=== PATIENT | female | born 1970 | race African-American/Black ===

== ENCOUNTER 2023-09-14 19:29 | Emergency (ER) | payer OTHER, SELFPAY ==
[2023-09-14 19:34] VITALS: BP 202/120; PULSE 72; TEMP 36.7; O2SAT 100; BMI 30.7
--- NOTE | 2023-09-14 19:48 | ED_ITS ---
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 Injury occurred shortly prior to arrival at work when she accidentally got her finger caught in the machine, describes as crushing, smashing type injury. Complains of pain, bruising, tenderness to the distal aspect of her finger. Denies any other injury, motor or sensory changes, paresthesias. Patient is right-handed. Quality:?Crushing type injury Severity:?Mild Timing:?Injury occurred shortly prior to arrival, constant Context: Injury occurred while at work Modifying factors:?Pain worse with palpation, movement Associated symptoms: As above Related Data Previous Rx's ?Medication ?Instructions ?Recorded lisinopril 20 mg tablet 20 mg PO DAILY #20 tabs 09/14/23 Allergies Allergy/AdvReac Type Severity Reaction Status Date / Time No Known Drug Allergies Allergy Verified 09/14/23 19:39 Opioid HPI Opioid Management Most Recent Pain and Opioid Data: No Data to Display Review of Systems ROS Narrative CONST: Denies activity change, weakness MS: +arthralgias, swelling.? Denies myalgias SKIN: + bruising. Denies wound NEURO: Denies numbness, paresthesias, weakness Exam Narrative Exam Narrative: Vital signs noted Nurses notes reviewed CONST: Nontoxic, well appearing, well nourished, in no distress.? HENT: normocephalic, atraumatic. CV: 2+ palpable right radial pulse MS: Right middle finger: +tenderness to the distal phalanx. There is some associated swelling, bruising is noted. Patient has acrylic nail present. Nail is thick. Cannot assess for subungual hematoma around it.? No tenderness to the remainder of the finger, rest of the hand.? No crepitus, deformity, instability, warmth.? ROM full flexion and extension.? Strength 5/5 NEURO: Sensory intact throughout and distal to the injury SKIN: intact, warm, dry.? No abrasion, laceration PSYCHIATRIC: normal mood, affect Constitutional Vital Signs, click to edit/add: Last Vital Signs Temp 98.1 F 09/14/23 19:34 Pulse 67 09/14/23 21:31 Resp 16 09/14/23 21:31 BP 190/108 H 09/14/23 21:31 Pulse Ox 99 09/14/23 21:31 O2 Del Method Room Air 09/14/23 21:31 Course Reevaluation(s) Reevaluation #1: Discussed with patient results, plan, and disposition. She is agreeable with plan. Patient gave permission to discuss results with Tameka who is underwriting sales representative of patient's employer. Time: 21:15 Vital Signs Vital signs: Vital Signs Temperature 98.1 F 09/14/23 19:34 Pulse Rate 72 09/14/23 19:34 Respiratory Rate 18 09/14/23 19:34 Blood Pressure 202/120 H 09/14/23 19:34 Pulse Oximetry 100 09/14/23 19:34 Oxygen Delivery Method Room Air 09/14/23 19:34 Temperature 98.1 F 09/14/23 19:34 Pulse Rate 67 09/14/23 21:31 Respiratory Rate 16 09/14/23 21:31 Blood Pressure 190/108 H 09/14/23 21:31 Pulse Oximetry 99 09/14/23 21:31 Oxygen Delivery Method Room Air 09/14/23 21:31 MDM - Extremity Injury (Upper) MDM Narrative Medical decision making narrative: This is a pleasant 53-year-old female who presents to the emergency department complaint of injury to her right middle finger while at work shortly prior to arrival. States accidental crush type injury. Complains of pain, tenderness, swelling, bruising, throbbing to the finger. Denies any motor or sensory changes, paresthesias. On arrival, afebrile, hypertensive, otherwise vital signs stable. Exam, nontoxic, well-appearing patient in no distress. She has swelling, bruising, tenderness to the distal right middle finger. We were able to remove a portion of the fingernail. No evidence of subungual hematoma.MSPs intact. X- ray imaging, per radiologist reveals distal tuft fracture. Favor crushing injury of her finger causing distal tuft fracture Dislocation less likely based on imaging Subungual hematoma less likely based on exam Patient will be placed in finger splint. She declined anything stronger than Motrin or Tylenol for pain. Incidentally, patient's arrival revealed blood pressure elevated. Patient has chronic history of hypertension, but stopped taking her blood pressure medicines for years ago in association with smoking cessation. Patient is agreeable with going back on her blood pressure medicines. Will write a prescription for this and she was given dose in the emergency department. She denies any headache, lightheadedness, chest pain, dizziness Disposition ? The patient was discharged. Plan: Patient will be discharged to home. Condition at time of disposition: stable ? Advised to follow up with primary provider. Advised to return for any worsening and/or development of new, concerning signs or symptoms PLEASE NOTE: Portions of the medical record may have been produced using electronic repatcher and may contain errors with respect to translation of words which may not have been identified prior to finalization of the chart. Imaging Data finger xr: Attestation: I have reviewed the pertinent imaging results. Radiologist's impression: ITS Impressions Finger X-Ray 09/14/23 19:49 IMPRESSION: Acute minimally displaced fracture of the distal tuft of the distal phalanx of the third digit of the right hand is seen. Associated soft tissue swelling is seen. Electronically authenticated by: ERIK RUIZ Date: 09/14/2023 20:36 Discharge Plan Discharge Stand Alone Forms: Portal Instructions Chief Complaint: Extremity Injury, Upper Clinical Impression: Finger pain, right, Fracture of middle phalanx of finger of right hand, Elevated blood pressure reading Patient Disposition: Home, Self-Care Time of Disposition Decision: 21:14 Condition: Good Mode of Transportation: Private Vehicle Prescriptions / Home Meds: New lisinopril 20 mg tablet 20 mg PO DAILY Qty: 20 0RF Print Language: Sudanese Instructions: Finger Fracture (ED), Hypertension (ED) Referrals: LUNA MATUTE [Primary Care Provider] - 1 week Discharge Date/Time: 09/14/23 21:30
--- NOTE | 2023-09-14 19:49 | XR_ITS ---
The [address] [address] Patient Name: CHELSEY FISCHER MRN: [id number] date: 1970 Sex: F Assigned Patient Location: ER Current Patient Location: ED.MAIN Accession/Order Number: [id number] Exam Date: 09/14/2023 19:55 Report Date: 09/14/2023 20:36 At the request of: RICK RENE Procedure: XR finger RT min 2V EXAM: XR finger RT min 2V HISTORY: pain, injury COMPARISON: None. TECHNIQUE: 3 views of the third digit of the right hand FINDINGS: Acute minimally displaced fracture of the distal tuft of the distal phalanx of the third digit of the right hand is seen. Associated soft tissue swelling is seen. Joint alignment is normal. Joint spaces are preserved. XR/XR finger RT min 2V IMPRESSION: Acute minimally displaced fracture of the distal tuft of the distal phalanx of the third digit of the right hand is seen. Associated soft tissue swelling is seen. Electronically authenticated by: ERIK RUIZ Date: 09/14/2023 20:36
[2023-09-14 20:08] VITALS: BP 202/120
[2023-09-14] MEDS: LISINOPRIL 10 MG TABLET 20 MG PO (20:08)
[2023-09-14 21:05] VITALS: BP 200/110; PULSE 75; O2SAT 99
[2023-09-14 21:31] VITALS: BP 190/108; PULSE 67; O2SAT 99
== END 2023-09-14 21:30 | disposition home or self-care (01) ==
PROVIDERS: Emergency Provider Internal Medicine; PCP Nurse Practitioner Family
DX: S62.622A Displaced fracture of middle phalanx of right middle finger, initial encounter for closed fracture (principal); R03.0 Elevated blood-pressure reading, without diagnosis of hypertension; M79.644 Pain in right finger(s); W23.0XXA Caught, crushed, jammed, or pinched between moving objects, initial encounter
CPT/HCPCS: 29130; 73140; 99284

== ENCOUNTER 2023-11-07 14:55 | Outpatient (OUT) | payer BC, SELFPAY ==
--- NOTE | 2023-11-07 15:09 | XR_ITS ---
The [address] [address] Patient Name: CHLESEY FISCHER MRN: [id number] date: 1970 Sex: F Assigned Patient Location: [facility] Current Patient Location: RAD Accession/Order Number: [id number] Exam Date: 11/07/2023 15:04 Report Date: 11/07/2023 15:22 At the request of: SERGEI CORDERO Procedure: XR hand RT min 3V PROCEDURE: XR hand RT min 3V HISTORY: Right finger pain, ATTN: [facility] COMPARISON: None. FINDINGS: BONES:Nondisplaced fractures involving the tuft of the third digit distal phalanx. Slight bone resorption at the margins compatible with early bone healing. SOFT TISSUES:Soft tissue swelling of third digit. EFFUSION:None visible. OTHER: Negative. XR/XR hand RT min 3V IMPRESSION: 1. Nondisplaced slightly comminuted fractures involving the tuft of the third distal phalanx. Electronically authenticated by: QUINN LEWIS Date: 11/07/2023 15:22
== END 2023-11-07 14:56 | disposition home or self-care (01) ==
PROVIDERS: PCP Nurse Practitioner Family; Visit Provider Nurse Practitioner Family
DX: M79.644 Pain in right finger(s) (principal); S62.662A Nondisplaced fracture of distal phalanx of right middle finger, initial encounter for closed fracture
CPT/HCPCS: 73130

== ENCOUNTER 2024-07-17 13:11 | Outpatient (OUT) | payer BC, SELFPAY ==
--- NOTE | 2024-07-17 13:17 | XR_ITS ---
The [address] [address] Patient Name: CHELSEY FISCHER MRN: [id number] date: 1970 Sex: F Assigned Patient Location: [facility] Current Patient Location: [facility] Accession/Order Number: [id number] Exam Date: 07/17/2024 14:01 Report Date: 07/17/2024 14:04 At the request of: ALISA TURNER DPM Procedure: XR foot RT min 3V RIGHT FOOT - 3 views CLINICAL DATA: Right foot pain dorsally. No recent injury. COMPARISON: None Weightbearing AP, lateral and oblique views were obtained. There are findings suggesting prior bunionectomy. A screw is seen at the neck of the first metatarsal. There are also 2 screws through the calcaneus with suggestion of prior osteotomy. There is no acute fracture or dislocation. There is flattening of the plantar arch. Degenerative changes are seen in the tarsal and first tarsometatarsal region. There are no significant soft tissue abnormalities. XR/XR foot RT min 3V IMPRESSION: POSTOPERATIVE AND DEGENERATIVE CHANGES. NO ACUTE BONY FINDINGS. Impression dictated by: Linda Negron M.D.07/17/2024 2:04 PM Dictation Location: [place] [address] Electronically authenticated by: [id number] Date: 07/17/2024 14:04
--- OUTSIDE RECORDS SUMMARY | 2024-07-17 13:34 | XMS_ITS | CCD ---
Author Organization [facility] Care Team Providers Care Mechanical Operator Name Role Phone VIOLETA RICCI Attending Unavailable UNKNOWN, PHYSICIAN Primary Care Unavailable UNKNOWN, PHYSICIAN Referring Unavailable VIOLETA RICCI Admitting Unavailable Unallocated, [place] Provider Primary Care Provider Antony Chopra Attending Unavailable MAURA CROOK Primary Care Physician [phone] SCARLETT Crook Primary Care Provider MD Rocío Suh Attending Provider SCARLETT Crook Attending Provider SCARLETT Crooknifer Primary Care Provider SCARLETT Crook Attending Provider [phone] MD Jd Dejesus Attending Provider Maura Crook Primary Care Unavailable Rocío Suh Admitting Unavailable Rocío Suh Attending Unavailable Maura Croko Primary Care Unavailable Maura Crook Attending Unavailable Maura Crook Admitting Unavailable Maura Crook Primary Care Unavailable Maura Crook Attending Unavailable Maura Crook Admitting Unavailable KapMaura mayo Primary Care Unavailable Asaad, Imad Admitting Unavailable Asaad, Imad Attending Unavailable GLADIS REILLY Attending Unavailable PARTH FELDMAN Attending Unavailable PARTH FELDMAN Attending Unavailable STEVE SALDANA Attending Unavailable STEVE SALDANA Referring Unavailable Unallocated Lupe ZHOU Provider Primary Care Provi hari Medications Current Medications Medication Drug Class(es) Dates Sig (Normalized) Sig (Original) amLODIPine 5 mg oral tablet (7 sources) Dihydropyridine Calcium Channel Kyaw Start: 11-27-2023 take 1 tablet by mouth once daily Amlodipine 5 mg tablet Active 5 MG PO Daily November 26, 2023 11:00pm estradiol 1 mg / norethindrone acetate 0.5 mg oral tablet (2 sources) Estrogen Start: 12-01-2023 End: 11-30-2024 estradiol-noreth indrone (Activella) 1-0.5 MG tablet Indications: Hot flashes Take 1 tablet by mouth Daily 30 tablet 11 12/01/2023 11/30/2024 Active lisinopril 20 mg oral tablet (20 sources) Angiotensin Converting Enzyme Inhibitor Start: 12-25-2023 take 1 tablet by mouth once daily Lisinopril 20 mg tablet Active 20 MG PO Daily December 24, 2023 11:00pm Start: 10-30-2023 take 1 tablet by vidhya th once daily lisinopril 20 mg Tab 20 mg = 1 tab(s), Oral, Daily, Refills(s) 0 Start Date: 10/30/23 Status: Ordered Start: 10-26-2023 End: 12-13-2023 take 1 tablet by mouth once daily Lisinopril 30 mg tablet Discontinued 30 MG PO Daily October 26, 2023 9:38am December 13, 2023 7:35am Start: 12-18-2020 End: 03-03-2021 take 1 tablet by mouth once daily Lisinopril 2.5 mg Tablet Discontinued 2.5 MG PO Daily December 17, 2020 11:00pm March 03, 2021 7:34am omeprazole 40 mg delayed release oral capsule (17 sources) Proton Pump Inhibitor Start: 12-01-2023 End: 03-06-2024 take 1 capsule by mouth once daily Omeprazole 40 mg capsule,delayed release(DR/EC) Active 0 .ROUTE .COMPLEX 90 March 06, 2024 7:34am TAKE 1 CAPSULE BY MOUTH EVERY DAY Start: 10-26-2023 End: 12-01-2023 take 1 capsule by mouth once daily Omeprazole 40 mg capsule,delayed release(DR/EC) Discontinued 40 MG PO Daily 56 56 October 25, 2023 11:00pm December 01, 2023 10:43am predniSONE 20 mg oral tablet (1 source) Start: 10-30-2023 End: 11-04-2023 take 2 tablets by mouth once daily predniSONE 20 mg Tab 40 mg = 2 tab(s), Oral, Daily, X 5 day(s), # 10 tab(s), Refills(s) 0, Pharmacy: [facility]/pharmacy #[id number], 168, cm, 10/30/23 12:45:00 EDT, Height/Length Dosing, 92.5, kg, 10/30/23 12:45:00 EDT, Weight Dosing Start Date: 10/30/23 Stop Date: 11/04/23 Status: Ordered Completed/Discontinued Medications Medication Drug Class(es) Dates Sig (Normalized) Sig (Original) acetaminophen 325 mg / HYDROcodone bitartrate 5 mg oral tablet (9 sources) Opioid Agonist Start: 02-12-2017 End: 12-18-2020 take 1 tablet by mouth every four to six hours as needed for pain Hydrocodone-Acetamin ophen ([place]) 5-325 mg tablet Discontinued 1 TAB PO EVERY 4-6 HOURS as needed for pain February 12, 2017 December 18, 2020 5:52am amoxicillin 875 mg / clavulanate 125 mg oral tablet (9 sources) Penicillin-class Antibacterial Start: 12-18-2020 End: 03-03-2021 take 1 tablet by mouth three times daily Amoxicillin-Pot Clavulanate (Augmentin) 875-125 mg tablet Discontinued 1 TAB PO Three times daily 30 December 17, 2020 11:00pm March 03, 2021 7:34am cyclobenzaprine hydrochloride 10 mg oral tablet (9 sources) Muscle Relaxant Start: 02-12-2017 End: 12-18-2020 take 1 tablet by mouth every eight hours Cyclobenzaprine 10 mg tablet Discontinued 10 MG PO Q8H February 11, 2017 11:00pm December 18, 2020 5:52am ibuprofen 600 mg oral tablet (11 sources) Nonsteroidal Anti-inflammatory Drug Start: 02-12-2017 End: 12-18-2020 Ibuprofen 600 mg tablet Discontinued 600 MG PO every 6 to 8 hours as needed for pain February 11, 2017 11:00pm December 18, 2020 5:52am ibuprofen 800 MG tablet Take 800 mg by mouth if needed for mild pain Active Problems Active Problems Problem Classification Problem Date Documented Date Episodic/Chronic Diverticulosis and diverticulitis (9 sources) Diverticulitis of gastrointestinal tract 12-18-2020 Chronic Esophageal disorders (20 sources) Gastroesophageal reflux disease; Translations: [Gastro-esophageal reflux disease without esophagitis] 10-26-2023 Chronic Essential hypertension (20 sources) Essential hypertension; Translations: [Essential (primary) hypertension] Onset: 11-27-2023 10-26-2023 Chronic Other connective tissue disease (10 sources) Trigger thumb of right hand; Translations: [Trigger thumb, right thumb] Onset: 10-30-2023 Episodic Other connective tissue disease (8 sources) Pain in thumb ; Translations: [Pain in right finger(s)] 10-30-2023 Episodic Other connective tissue disease (7 sources) Trigger thumb, right thumb; Translations: [Trigger finger (acquired)] 10-31-2023 Episodic Other non-traumatic joint disorders (9 sources) Swollen ankle region; Translations: [Effusion, right ankle] 10-23-2023 Episodic Other screening for suspected conditions (not mental disorders or infectious disease) (12 sources) Patient encounter status; Translations: [Encounter for screening for malignant neoplasm of colon] Onset: 11-02-2023 10-26-2023 Episodic Sprains and strains (9 sources) Strain of neck muscle; Translations: [Strain of muscle, fascia and tendon at neck level, initial encounter] 10-23-2023 Episodic Past or Other Problems Problem Classification Problem Date Documented Da te Episodic/Chronic Other connective tissue disease (1 source) Pain in right finger(s); Translations: [Pain in right finger(s)] Onset: 10-31-2023 Episodic Results Test Name Value Interpretation Reference Range Facility 06-21-2024 36 Records printed out just waiting on a fax number to send them [facility] 06-19-2024 36 Patients pediatrist is requesting medical records from patients last visit, she is sending over a fax. Normal [facility] Telephoneon 06-19-2024 Telephone [phone] Chelsey Fischer 1970 F Date Provider Department Center 06/19/2024 [id number] [facility] Normal [facility] Alanine aminotransferase [En zymatic activity/volume] in Serum or PlasmaOrdered By: Maura Crook on 11-27-2023 ALT [Catalytic activity/Vol] 16 U/L Normal 7-52 [facility] Comment on above: Order Comment: ALICE ALVARADO. JKW Performed By: #### L IPID, CBC, TSH3, CMP wRFX A1C #### [place] [address] [place] Albumin [Mass/volume] in Ser um or Plasma by Bromocresol green (BCG) dye binding methoOrdered By: Maura Crook on 11-27-2023 Albumin BCG dye [Mass/Vol] 4.1 g/dL 3.5-5.7 [facility] Alkaline phosphatase [Enzyma tic activity/volume] in Serum or PlasmaOrdered By: Maura Crook on 11-27-2023 ALP [Catalytic activity/Vol] 98 U/L Normal 34-104 [facility] Comment on above: Order Comment: ALICE ALVARADO. JKW Performed By: #### L IPID, CBC, TSH3, CMP wRFX A1C #### [address] Aspartate aminotransferase [ Enzymatic activity/volume] in Serum or PlasmaOrdered By: Maura Crook on 11-27-2023 AST [Catalytic activity/Vol] 16 U/L Normal 13-39 [facility] Comment on above: Order Comment: ALICE ALVARADO. JKW Performed By: #### L IPID, CBC, TSH3, CMP wRFX A1C #### [facility] [address] [place] [address] [place] Automated basophil %Ordered By: Maura Crook on 11-27-2023 Basophils/100 WBC (Bld) 0.7 % Normal . [facility] Comment on above: Performed By: #### L IPID, CBC, TSH3, CMP wRFX A1C #### [place] [address] [place] Automated basophil countOrde red By: Maura Crook on 11-27-2023 Basophils (Bld) [#/Vol] 0.0 10*3/uL Normal 0.0-0.2 [facility] Comment on above: Result Comment: PERF ORMED BY: [place] [address] PATHOLOGIST JAWBONE BREAKER SIERRA LEIGH M.D. Performed By: #### L IPID, CBC, TSH3, CMP wRFX A1C #### [address] Automated blood monocyte cou ntOrdered By: Maura Crook on 11-27-2023 Monocytes (Bld) [#/Vol] 0.3 10*3/uL Normal 0.0-0.8 [facility] Comment on above: Performed By: #### L IPID, CBC, TSH3, CMP wRFX A1C #### [address] Automated eosinophil %Ordere d By: Maura Crook on 11-27-2023 Eosinophils/100 WBC (Bld) 1.7 % Normal . [facility] Comment on above: Performed By: #### L IPID, CBC, TSH3, CMP wRFX A1C #### [address] Automated eosinophil countOr dered By: Maura Crook on 11-27-2023 Eosinophils (Bld) [#/Vol] 0.1 10*3/uL Normal 0.0-0.45 [facility] Comment on above: Performed By: #### L IPID, CBC, TSH3, CMP wRFX A1C #### [address] Automated monocyte %Ordered By: Maura Crook on 11-27-2023 Monocytes/100 WBC (Bld) 4.0 % Normal . [facility] Comment on above: Performed By: #### L IPID, CBC, TSH3, CMP wRFX A1C #### [address] Automated neutrophil %Ordere d By: Maura Crook on 11-27-2023 Neutrophils/100 WBC (Bld) 38.6 % Normal . [facility] Comment on above: Performed By: #### L IPID, CBC, TSH3, CMP wRFX A1C #### [facility] [address] Bilirubin.total [Mass/volume ] in Serum or PlasmaOrdered By: Maura Crook on 11-27-2023 Bilirubin [Mass/Vol] 0.4 mg/dL Normal 0.3-1.0 [facility] Comment on above: Order Comment: FASTI NG. JKW Performed By: #### L IPID, CBC, TSH3, CMP wRFX A1C #### [address] CMP with reflex to A1Con Albumin [Mass/Vol] 4.1 g/dL Normal 3.5-5.7 [facility] Comment on above: Order Comment: FASTI NG. JKW Performed By: #### L IPID, CBC, TSH3, CMP wRFX A1C #### [address] GFR/1.73 sq M.predicted MDRD (S/P/Bld) [Vol rate/Area] 59.806 mL/min/{1.73_m2} Normal [facility] Comment on above: Order Comment: FASTI NG. JKW Performed By: #### L IPID, CBC, TSH3, CMP wRFX A1C #### [address] Calcium [Mass/volume] in Ser um or PlasmaOrdered By: Maura Crook on 11-27-2023 Calcium [Mass/Vol] 9.1 mg/dL Normal 8.6-10.3 [place] Comment on above: Order Comment: FASTI NG. JKW Performed By: #### L IPID, CBC, TSH3, CMP wRFX A1C #### [address] Carbon dioxide, total [Moles /volume] in Serum or PlasmaOrdered By: Maura Crook on 11-27-2023 CO2 [Moles/Vol] 27.3 mmol/L Normal 21.0-31.0 [facility] Comment on above: Order Comment: ALICE ALVARADO. AdamKW Performed By: #### L IPID, CBC, TSH3, CMP wRFX A1C #### [facility] [address] [place] [id number] [place] Chloride [Moles/volume] in S shady or PlasmaOrdered By: Maura Crook on 11-27-2023 Chloride [Moles/Vol] 106 mmol/L Normal 98-107 [facility] Comment on above: Order Comment: ALICE ALVARADO. JKW Performed By: #### L IPID, CBC, TSH3, CMP wRFX A1C #### [facility] [address] [place] [address] [place] Cholesterol [Mass/volume] in Serum or PlasmaOrdered By: Maura Crook on 11-27-2023 Cholesterol [Mass/Vol] 193 mg/dL Normal 140-200 [facility] Comment on above: Chol less than 200 m g/dl low riskChol 201-239 mg/dl borderline riskChol 240 mg/dl and greater high risk Order Comment: ALICE ALVARADO. JKW Result Comment: Chol less than 200 mg/dl low risk Chol 201-239 mg/dl borderline risk Chol 240 mg/dl and greater high risk Performed By: #### L IPID, CBC, TSH3, CMP wRFX A1C #### [facility] [address] [place] [id number] [place] Cholesterol in LDL Calc [Mas s/Vol]Ordered By: Maura Crook on 11-27-2023 Cholesterol in LDL [Mass/Vol] 117 mg/dL High 0-100 [facility] Comment on above: LDL ATP III CLASSIFI CATIONLDL less than 100 mg/dL OptimalLDL 100-129 mg/dL Near or above optimalLDL 130-159 mg/dL Borderline highLDL 160-189 mg/dL HighLDL greater than 189 mg/dL Very high Cholesterol in VLDL Calc [Ma ss/Vol]Ordered By: Maura Crook on 11-27-2023 Cholesterol in VLDL [Mass/Vol] 16 mg/dL [facility] Complete Blood Count Auto Di ffon 11-27-2023 Mean Corpuscular HGB Conc 34.3 g/dL Normal 32.0-35.0 [facility] Comment on above: Performed By: #### L IPID, CBC, TSH3, CMP wRFX A1C #### [address] NRBC% 0.1 /100{WBC} Normal 0-0.5 [facility] Comment on above: Performed By: #### L IPID, CBC, TSH3, CMP wRFX A1C #### [address] Creatinine [Mass/volume] in Serum or PlasmaOrdered By: Maura Crook on 11-27-2023 Creatinine [Mass/Vol] 1.11 mg/dL Normal 0.60-1.20 [facility] Comment on above: Order Comment: ALICE ORTIZ Performed By: #### L IPID, CBC, TSH3, CMP wRFX A1C #### [address] Erythrocyte distribution wid th [Ratio] by Automated countOrdered By: Maura Crook on 11-27-2023 Erythrocyte distribution width (RBC) [Ratio] 13.9 % Normal 11.9-15.3 [facility] Comment on above: Performed By: #### L IPID, CBC, TSH3, CMP wRFX A1C #### [place] [address] [place] Erythrocytes [#/volume] in B lood by Automated countOrdered By: Maura Crook on 11-27-2023 RBC (Bld) [#/Vol] 4.35 10*6/uL Normal 3.60-5.00 [facility] Comment on above: Performed By: #### L IPID, CBC, TSH3, CMP wRFX A1C #### [place] [address] [place] Glucose [Mass/volume] in Ser um or PlasmaOrdered By: Maura Crook on 11-27-2023 Glucose [Mass/Vol] 91 mg/dL Normal 70-100 [place] Comment on above: Order Comment: ALICE ORTIZ Performed By: #### L IPID, CBC, TSH3, CMP wRFX A1C #### [facility] [address] Hematocrit [Volume Fraction] of Blood by Automated countOrdered By: Maura Crook on 11-27-2023 Hematocrit (Bld) [Volume fraction] 37.6 % Normal 34.0-46.4 [facility] Comment on above: Performed By: #### L IPID, CBC, TSH3, CMP wRFX A1C #### [facility] [address] Hemoglobin [Mass/volume] in BloodOrdered By: Maura Crook on 11-27-2023 Hemoglobin (Bld) [Mass/Vol] 12.9 g/dL Normal 11.8-15.4 [facility] Comment on above: Performed By: #### L IPID, CBC, TSH3, CMP wRFX A1C #### [facility] [address] Leukocytes [#/volume] correc mariana for nucleated erythrocytes in Blood by Automated counOrdered By: Maura Crook on 11-27-2023 WBC corrected for nucl RBC Auto (Bld) [#/Vol] 6.6 10*3/uL 3.8-11.6 [facility] Leukocytes [#/volume] in Blo od by Automated countOrdered By: Maura Crook on 11-27-2023 WBC (Bld) [#/Vol] 6.6 10*3/uL Normal 3.8-11.6 [place] Comment on above: Performed By: #### L IPID, CBC, TSH3, CMP wRFX A1C #### [facility] [address] Lipid Panelon 11-27-2023 LDL Cholesterol,Calculated 117 mg/dL High 0-100 [facility] Comment on above: Order Comment: ALICE ORTIZ Result Comment: LDL ATP III CLASSIFICATION LDL less than 100 mg/dL Optimal LDL 100-129 mg/dL Near or above optimal LDL 130-159 mg/dL Borderline high LDL 160-189 mg/dL High LDL greater than 189 mg/dL Very high Performed By: #### L IPID, CBC, TSH3, CMP wRFX A1C #### [address] Triglyceride w/Reflex 84 mg/dL Normal 0-149 [facility] Comment on above: Order Comment: ALICE ALVARADO. JKW Result Comment: TRIG ATP III CLASSIFICATION TRIG less than 150 mg/dL Normal TRIG 150-199 mg/dL Borderline high TRIG 200-500 mg/dL High TRIG greater than 500 mg/dL Very high Standard traceable to the Center for Disease Conrtrol and Prevention (CDC) test method. Performed By: #### L IPID, CBC, TSH3, CMP wRFX A1C #### [address] VLDL CHOLESTEROL 16 mg/dL Normal [facility] Comment on above: Order Comment: ALICE ALVARADO. JKW Performed By: #### L IPID, CBC, TSH3, CMP wRFX A1C #### [address] Lymphocytes [#/volume] in Bl ood by Automated countOrdered By: Maura Crook on 11-27-2023 Lymphocytes (Bld) [#/Vol] 3.6 10*3/uL Normal 1.00-4.8 [facility] Comment on above: Performed By: #### L IPID, CBC, TSH3, CMP wRFX A1C #### [place] [address] [place] Lymphocytes/100 leukocytes i n Blood by Automated countOrdered By: Maura Crook on 11-27-2023 Lymphocytes/100 WBC (Bld) 55.0 % Normal . [facility] Comment on above: Performed By: #### L IPID, CBC, TSH3, CMP wRFX A1C #### [place] [address] [place] MCH [Entitic mass] by Automa mariana countOrdered By: Maura Crook on 11-27-2023 MCH (RBC) [Entitic mass] 29.6 pg Normal 24.7-34.3 [facility] Comment on above: Performed By: #### L IPID, CBC, TSH3, CMP wRFX A1C #### [facility] [address] [place] [address] MCHC Auto (RBC) [Mass/Vol]Or dered By: Maura Crook on 11-27-2023 MCHC (RBC) [Mass/Vol] 34.3 g/dL 32.0-35.0 [facility] MCV [Entitic volume] by Auto mated countOrdered By: Maura Crook on 11-27-2023 MCV (RBC) [Entitic vol] 86.3 fL Normal 80-100 [facility] Comment on above: Performed By: #### L IPID, CBC, TSH3, CMP wRFX A1C #### [address] Neutrophils [#/volume] in Bl ood by Automated countOrdered By: Maura Crook on 11-27-2023 Neutrophils (Bld) [#/Vol] 2.6 10*3/uL Normal 1.8-7.7 [facility] Comment on above: Performed By: #### L IPID, CBC, TSH3, CMP wRFX A1C #### [facility] [address] [place] [address] No Panel InformationOrdered By: Maura Crook on 11-27-2023 Estimated GFR (CKD-EPI) 59.806 mL/Min [facility] Creatinine Clearance (Chem N/A [facility] Nucleated erythrocytes [Pres ence] in Blood by Automated countOrdered By: Maura Crook on 11-27-2023 Nucleated RBC Auto Ql (Bld) 0.1 /100{WBC} 0-0.5 [facility] Platelet mean volume [Entiti c volume] in Blood by Automated countOrdered By: Maura Crook on 11-27-2023 Platelet mean volume (Bld) [Entitic vol] 8.9 fL Normal 6.3-10.7 [facility] Comment on above: Performed By: #### L IPID, CBC, TSH3, CMP wRFX A1C #### [facility] [address] Platelets [#/volume] in Bloo d by Automated countOrdered By: Maura Crook on 11-27-2023 Platelets (Bld) [#/Vol] 277 10*3/uL Normal 150-450 [facility] Comment on above: Performed By: #### L IPID, CBC, TSH3, CMP wRFX A1C #### [facility] [address] [place] [address] Potassium [Moles/volume] in Serum or PlasmaOrdered By: Maura Crook on 11-27-2023 Potassium [Moles/Vol] 4.0 mmol/L Normal 3.5-5.1 [facility] Comment on above: Order Comment: FASTI JENNY. JKW Performed By: #### L IPID, CBC, TSH3, CMP wRFX A1C #### [facility] [address] [place] [address] Protein [Mass/volume] in Ser um or PlasmaOrdered By: Maura Crook on 11-27-2023 Protein [Mass/Vol] 7.6 g/dL Normal 6.4-8.9 [place] Comment on above: Order Comment: FASTI NG. JKW Performed By: #### L IPID, CBC, TSH3, CMP wRFX A1C #### [facility] [address] [place] [address] Serum globulin measurement b y calculation (mass/volume)Ordered By: Maura Crook on 11-27-2023 Globulin (S) [Mass/Vol] 3.5 g/dL Normal [facility] Comment on above: Order Comment: FASTI NG. JKW Performed By: #### L IPID, CBC, TSH3, CMP wRFX A1C #### [facility] [address] [place] [address] Serum or plasma albumin/glob ulin mass ratioOrdered By: Maura Crook on 11-27-2023 Albumin/Globulin [Mass ratio] 1.2 {ratio} Normal [facility] Comment on above: Order Comment: FASTI NG. JKW Performed By: #### L IPID, CBC, TSH3, CMP wRFX A1C #### [facility] [address] Serum or plasma anion gap de terminationOrdered By: Maura Crook on 11-27-2023 Anion gap [Moles/Vol] 10.7 mmol/L Normal 6.0-15.0 [facility] Comment on above: Order Comment: ALICE ALVARADO. JKW Performed By: #### L IPID, CBC, TSH3, CMP wRFX A1C #### [facility] [address] Serum or plasma high density lipoprotein (HDL) cholesterol measurementOrdered By: Maura Crook on 11-27-2023 Cholesterol in HDL [Mass/Vol] 59 mg/dL Normal 23-92 [facility] Comment on above: HDL CHOL ATP-III CLA SSIFICATION Cardiovascular RiskHDL > or equal to 60 mg/dL LOWHDL < 40 mg/dL HIGH Order Comment: ALICE ALVARADO. JKW Result Comment: HDL CHOL ATP-III CLASSIFICATION Cardiovascular Risk HDL > or equal to 60 mg/dL LOW HDL < 40 mg/dL HIGH Performed By: #### L IPID, CBC, TSH3, CMP wRFX A1C #### [facility] [address] Serum or plasma total choles terol/high density lipoprotein (HDL) cholesterol mass ratOrdered By: Maura Crook on 11-27-2023 Cholesterol.total/Choles terol in HDL [Mass ratio] 3.3 {ratio} Normal <5.0 [facility] Comment on above: Order Comment: ALICE ALVARADO. JKW Performed By: #### L IPID, CBC, TSH3, CMP wRFX A1C #### [facility] [address] Sodium [Moles/volume] in Ser um or PlasmaOrdered By: Maura Crook on 11-27-2023 Sodium [Moles/Vol] 140 mmol/L Normal 136-145 [place] Comment on above: Order Comment: ALICE ALVARADO. JKW Performed By: #### L IPID, CBC, TSH3, CMP wRFX A1C #### [address] Thyrotropin [Units/volume] i n Serum or PlasmaOrdered By: Maura Crook on 11-27-2023 TSH Qn 0.67 m[IU]/L Normal 0.45-5.33 [facility] Comment on above: Order Comment: ALICE MedinaKW Result Comment: PERF ORMED BY: [place] [address] PATHOLOGIST JAWBONE BREAKER SIERRA LEIGH M.D. Performed By: #### L IPID, CBC, TSH3, CMP wRFX A1C #### [address] Triglyceride [Mass/volume] i n Serum or PlasmaOrdered By: Maura Crook on 11-27-2023 Triglyceride [Mass/Vol] 84 mg/dL 0-149 [facility] Comment on above: TRIG ATP III CLASSIF ICATIONTRIG less than 150 mg/dL NormalTRIG 150-199 mg/dL Borderline highTRIG 200-500 mg/dL High TRIG greater than 500 mg/dL Very highStandard traceable to the Center for Disease Conrtrol and Prevention (CDC) test method. Urea nitrogen [Mass/volume] in Serum or PlasmaOrdered By: Maura Crook on 11-27-2023 Urea nitrogen [Mass/Vol] 20 mg/dL Normal 7-25 [facility] Comment on above: Order Comment: ALICE ORTIZ Performed By: #### L IPID, CBC, TSH3, CMP wRFX A1C #### [facility] [address] [place] [address] MM screening mammo BI w/CADo n 11-02-2023 MM screening mammo BI w/CAD [facility] [place] [address] [place] [address] Mammography Report Signed Patient: Chelsey Fischer MR#: [id number] : 1970 Acct:[id number] Age/Sex: 53 / F ADM Date: 11/02/23 Loc: [place] Room: Type: [facility] CLI Attending Dr: Maura Crook DNP Copies to: Maura Crook DNP Ordering Provider: Maura Crook DNP Date of Service: 11/02/23 MM/MM screening mammo BI w/CAD: Z12.31 - Encounter for screening mammogram for malignant ... CLINICAL DATA: Screening for malignancy. BILATERAL SCREENING MAMMOGRAMS - FULL FIELD DIGITAL WITH TOMOSYNTHESIS AND CAD Tomosynthesis craniocaudal and mediolateral oblique views of both breasts were obtained using low- dose digital technique. Comparison is made to the prior study from November 15, 2013. This examination was reviewed with the aid of CAD. The breast parenchyma has been largely replaced by fat. There are no dominant masses, typically malignant calcifications or architectural distortion. There has been no significant interval change. MM/MM screening mammo BI w/CAD IMPRESSION: NO MAMMOGRAPHIC EVIDENCE OF MALIGNANCY. ROUTINE FOLLOW-UP IS RECOMMENDED IN ONE YEAR. RESULT CODE: 1 Negative DENSITY CODE: 1 (<25% glandular) FOLLOW UP: 1YR The false-negative rate of mammography is approximately 10-percent. Management of a palpable abnormality must be based on clinical grounds. Patient was entered into a reminder system with a target due date for the next mammogram. Impression dictated by: Linda Negron M.D.11/02/2023 12:20 PM Dictation Location: [facility] Transcribed By: [place] 11/02/23 1220 Dictated By: Linda Negron MD 11/02/23 1216 Signed By: 11/02/23 1220 Normal [facility] XR hand RT min 3V*on 024 XR hand RT min 3V* [facility] [address] [place] [address] XRay Report Signed Patient: Chelsey Fischer MR#: [id number] : 1970 Acct:[id number] Age/Sex: 53 / F ADM Date: 10/31/23 Loc: [facility] Room: Type: [facility] CLI Attending Dr: Rocío Suh MD Copies to: Rocío Suh MD Ordering Provider: Rocío Suh MD Date of Service: 10/31/23 XR/XR hand RT min 3V*: M79.644 - Pain in right finger(s) 4 views RIGHT hand plain film COMPARISON: None HISTORY: 1st carpometacarpal joint pain. Injury. ACUTE FINDINGS: The 3rd tuft fracture present. DEGENERATIVE CHANGE: Minor spurring of 1st carpometacarpal joint. SOFT TISSUE FINDINGS: Unremarkable JOINT EFFUSION: None POSTOP CHANGES: None BONY MINERALIZATION: Adequate XR/XR hand RT min 3V* IMPRESSION: No acute bony findings. Minor degeneration. Impression dictated by: Regan Balderas M.D.10/31/2023 4:03 PM Dictation Location: [place] [address] Transcribed By: [place] 10/31/23 1603 Dictated By: Regan Balderas DO 10/31/23 1601 Signed By: 10/31/23 1603 Normal [facility] Ambulatory Visit Summaryon 0 10-30-2023 Ambulatory Visit Summary CHELSEY FISCHER :1970 Visit Date:10/30/2023 Ambulatory Visit Instructions Your Care Team Attending Physician - Antony Chopra DO Primary Care Physician - MAURA CROOK CNP This Is Your Medications List lisinopril (lisinopril 20 mg Tab) Procedures Performed Ankle. Discharge Vitals Heart Rate (Peripheral) 71 Blood Pressure 124/82 Height 168 cm Height 66 in Weight 92.5 kg Weight 203.5 lb BMI 32.77 Medications What How Much When Instructions Unchanged lisinopril (lisinopril 20 mg Tab) 1 Tablets By Mouth Every day Allergies No Known Allergies Patient Survey You may receive a survey via text or e-mail asking about your office visit. Please share your experience with us by completing your survey. We appreciate your feedback and thank you for choosing us for your care. Normal [facility] Family Medicine Office/Clini c Noteon 10-30-2023 Family Medicine Office/Clinic Note Chief Complaint R Trigger Thumb HPI Staff 53 year old female present for trigger thumb on right hand. 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 Pt notes she thought it would subside on its own. 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 light duty at work for a different injury CC: Symptoms started 2 weeks ago Since then, the symptoms have not improved reports the thumb is painful and swollen denies a hx of arthritis, gout, rheumatologic disorders Review of Systems PHQ Score Initial Depression Screen Score: 0 SCORE Physical Exam Vitals & Measurements HR: 71(Peripheral) BP: 124/82 SpO2: 100% HT: 66 in HT: 168 cm WT: 92.5 kg WT: 203.5 lb BMI: 32.77 Constitutional: Vital signs reviewed; CHELSEY FISCHER is well nourished, no acute distress Head: Atraumatic, normocephalic Eye: EOMI, normal conjunctiva ENT: Moist oral mucosa, external inspection of ears and nose is unremarkable Neck: Trachea is midline, no tenderness Lungs: Clear to auscultation, non-labored respiration - expansion is symmetric Heart: Normal rate and rhythm, normal peripheral perfusion Lymph: Deferred Abd: Deferred : Deferred MSK: Normal gait and station - right trigger thumb, demonstrated several times; thumb does appear to be swollen and slightly sports management internship comparison to the left thumb Skin: Warm, dry Neurologic: Awake, alert and oriented, speech is normal, no focal deficits, CN II-XII grossly intact Psychiatric: Cooperative, appropriate mood and affect, judgement is appropriate Assessment/Plan 1. Trigger thumb, right thumb (M65.311: Trigger thumb, right thumb) Acute Not improving as expected recommend prednisone 40mg daily x 5 days and follow up with ortho soon work note - light duty until cleared by ortho f/u PRN Ordered: predniSONE, 40 mg = 2 tab(s), Oral, Daily, X 5 day(s), # 10 tab(s), Refills(s) 0, Pharmacy: [id number], 168, cm, 10/30/23 12:45:00 EDT, Height/Length Dosing, 92.5, kg, 10/30/23 12:45:00 EDT, Weight Dosing Follow-up No qualifying data available Problem List/Past Medical History Ongoing Trigger thumb, right thumb Historical No qualifying data Procedure/Surgical History Ankle. Medications lisinopril 20 mg Tab, 20 mg= 1 tab(s), Oral, Daily Allergies No Known Allergies Social History Tobacco Never (less than 100 in lifetime) Tobacco Use:. Never Smokeless Tobacco Use:., 10/30/2023 Family History Family history is negative [facility] Comment on above: Result Comment: Elec tronically Signed By: Antony Chopra DO\Date and Time Signed: 10/30/23 13:27 EDT Provider Letteron 10-30-2023 Provider Letter October 30, 2023 CHELSEY FISCHER [address] [place] [address] : 1970 To Whom It May Concern, Please excuse above patient from work. Restrictions: No use of right thumb. Comments: Patient may return to work light duty until seen by Orthopedics. Sincerely, [facility] [address] [place] [address], [place] [address] Normal [facility] FOOT RIGHT 3 [facility] 2 FOOT RIGHT 3 [facility] Department of Radiology [address] [place] [address] Patient Name: CHELSEY FISCHER : 1970 Sex: F Age: Race: Black Pt. Location: Patient Status: D Ordered Date: 01/25/2022 1:55:00 PM Completed Date: 01/25/2022 02:29 PM Requesting Provider: VIOLETA RICCI Attending Provider: Report Copy To: Signs & Symptoms: Z09 Encntr for f/u exam aft trtmt for cond oth than malig neoplm I10 History: Luna Comments: Weight Bearing?: N Exam: FOOT RIGHT 3 VWS FOOT RIGHT 3 VWS 01/25/2022 2:29 PM CLINICAL INDICATIONS: Z09 Encntr for f/u exam aft trtmt for cond oth than malig neoplm I10 calcaneal surgery follow-up postop pain TECHNOLOGIST COMMENTS: Patient states follow up of right Os Calsis surgery x 2 weeks QUESTION FOR THE RADIOLOGIST: Weight Bearing?: N PROTOCOL: AP,Lateral and Oblique views were obtained. COMPARISON: None FINDINGS: Postoperative changes of the calcaneus and first metatarsal. There is overlying cast material obscuring fine osseous details. There is no acute process. IMPRESSION: Postoperative changes without acute process identified. Electronically signed: Rick Pacheco. Transcribed by: [email or web address], User Resident: Electronically Signed by: RICK PACHECO @ 01/26/2022 10:03 AM Normal [facility] Comment on above: Order Comment: Weigh t Bearing?: N OSCALSIS RIGHT (CALCANEOUS)o n 01-25-2022 OSCALSIS RIGHT (CALCANEOUS) [facility] Department of Radiology [address] [place] [id number] Patient Name: CHELSEY FISCHER : 1970 Sex: F Age: Race: Black Pt. Location: Patient Status: D Ordered Date: 01/25/2022 1:55:00 PM Completed Date: 01/25/2022 02:29 PM Requesting Provider: VIOLETA RICCI Attending Provider: Report Copy To: Signs & Symptoms: Z09 Encntr for f/u exam aft trtmt for cond oth than malig neoplm I10 History: Luna Comments: Weight Bearing?: N Exam: OSCFRANSISCAIS RIGHT (CALCANEOUS) OSCALSIS RIGHT (CALCANEOUS) 01/25/2022 2:29 PM CLINICAL INDICATIONS: Z09 Encntr for f/u exam aft trtmt for cond oth than malig neoplm I10 calculus surgery postop follow-up pain TECHNOLOGIST COMMENTS: Patient states follow up of right Os Calsis surgery x 2 weeks QUESTION FOR THE RADIOLOGIST: Weight Bearing?: N PROTOCOL: Axial and Lateral views were obtained. COMPARISON: None FINDINGS: Fixation of the calcaneus with 2 surgical screws. There is likely prior calcaneal osteotomy. There is overlying cast material obscuring fine osseous details. IMPRESSION: Postoperative changes without acute process identified. Electronically signed: Rick Pacheco. Transcribed by: [email or web address], User Resident: Electronically Signed by: RICK PACHECO @ 01/26/2022 10:04 AM Normal [facility] Comment on above: Order Comment: Weigh t Bearing?: N BASIC METABOLIC PANELon 08-2 Calcium [Mass/Vol] 8.3 mg/dL Low 8.6-10.3 [facility] Comment on above: Order Comment: No: D o not add to previous draw Performed By: #### 0 0071 #### [facility] [address] [place] [address], [place] Chloride [Moles/Vol] 104 mmol/L Normal 98-107 [facility] Comment on above: Order Comment: No: D o not add to previous draw Performed By: #### 0 0071 #### [facility] [address] [place] [address], [place] CO2 [Moles/Vol] 26 mmol/L Normal 21-31 [facility] Comment on above: Order Comment: No: D o not add to previous draw Performed By: #### 0 0071 #### [facility] [address] [place] [address], [facility] Creatinine [Mass/Vol] 0.94 mg/dL Normal 0.60-1.20 [facility] Comment on above: Order Comment: No: D o not add to previous draw Performed By: #### 0 0071 #### [facility] [address] [place] [address], [facility] GFR/1.73 sq M.predicted among non-blacks MDRD (S/P/Bld) [Vol rate/Area] mL/min/{1.73_m2} Normal >60 [facility] Comment on above: Order Comment: No: D o not add to previous draw Result Comment: [facility]'s estimated glomerular filtration rate (eGFR) will no longer include consideration of race in its calculation. The National Kid[employer] Foundation's eGFR Task Force developed new recommendations for the estimation of the glomerular filtration rate in the [place] They recommend immediate implementation of the new equation refit without the race variable in all laboratories because the calculation does not include race. In addition to not including race in the calculation and reporting, it included diversity in its development, and has acceptable performance characteristics and potential consequences that do not disproportionately affect any one group of individuals. Performed By: #### 0 0071 #### [facility] [address] [place] [place] [address], [facility] Glucose [Mass/Vol] 102 mg/dL High 70-100 [facility] Comment on above: Order Comment: No: D o not add to previous draw Performed By: #### 0 0071 #### [facility] [address] [place] [address], [facility] Potassium [Moles/Vol] 3.3 mmol/L Low 3.5-5.1 [facility] Comment on above: Order Comment: No: D o not add to previous draw Performed By: #### 0 0071 #### [facility] [address] [place] [address], [facility] Sodium [Moles/Vol] 136 mmol/L Normal 136-145 [facility] Comment on above: Order Comment: No: D o not add to previous draw Performed By: #### 0 1 #### [facility] [address] [place] [address], [facility] Urea nitrogen [Mass/Vol] 13 mg/dL Normal 7-25 [facility] Comment on above: Order Comment: No: D o not add to previous draw Performed By: #### 0 1 #### [facility] [address] [place] [address], [facility] CBC W/DIFFon 01-12-2022 ABS IMM GRANS 0.0 10*3/uL Normal 0.0-0.2 [facility] Comment on above: Order Comment: No: D o not add to previous draw Performed By: #### 5 102 #### [facility] [address] [place] [address], [facility] ABS NEUTROPHILS 2.7 10*3/uL Normal 1.6-7.6 [facility] Comment on above: Order Comment: No: D o not add to previous draw Performed By: #### 5 102 #### [facility] [address] [place] [address], [facility] Basophils (Bld) [#/Vol] 0.0 10*3/uL Normal 0.0-0.2 [facility] Comment on above: Order Comment: No: D o not add to previous draw Performed By: #### 5 102 #### [facility] [address] [place] [address], [facility] Basophils/100 WBC (Bld) 0.4 % Normal 0.0-1.0 T [facility] Comment on above: Order Comment: No: D o not add to previous draw Performed By: #### 5 0103 #### [facility] [address] [place] [address], [facility] Eosinophils (Bld) [#/Vol] 0.0 10*3/uL Normal 0.0-0.5 [facility] Comment on above: Order Comment: No: D o not add to previous draw Performed By: #### 5 0103 #### [facility] [address] [place] [address], [facility] Eosinophils/100 WBC (Bld) 0.0 % Normal 0.0-6.0 [facility] Comment on above: Order Comment: No: D o not add to previous draw Performed By: #### 5 3 #### [facility] [address] Erythrocyte distribution width (RBC) [Ratio] 14.8 % Normal 11.5-15.0 [facility] Comment on above: Order Comment: No: D o not add to previous draw Performed By: #### 5 0103 #### [facility] [address] [place] [address], [facility] Hematocrit (Bld) [Volume fraction] 33.4 % Low 36.0-45.0 [facility] Comment on above: Order Comment: No: D o not add to previous draw Performed By: #### 5 3 #### [facility] [address] [place] [place] [address], [facility] Hemoglobin (Bld) [Mass/Vol] 11.2 g/dL Low 12.0-15.0 [facility] Comment on above: Order Comment: No: D o not add to previous draw Performed By: #### 5 0103 #### [facility] [address] [place] [address], [facility] IMMATURE GRANS 0.2 % Normal 0.0-1.0 [facility] Comment on above: Order Comment: No: D o not add to previous draw Performed By: #### 5 0103 #### [facility] [address] [place] [place] [address], [facility] Lymphocytes (Bld) [#/Vol] 2.2 10*3/uL Normal 1.2-4.0 [facility] Comment on above: Order Comment: No: D o not add to previous draw Performed By: #### 5 0103 #### [facility] [address] [place] [address], [facility] Lymphocytes/100 WBC (Bld) 38.5 % Normal 20.0-45.0 [facility] Comment on above: Order Comment: No: D o not add to previous draw Performed By: #### 5 0103 #### [facility] [address] [place] [place] [address], [facility] MCH (RBC) [Entitic mass] 27.6 pg Normal 27.0-33.0 [facility] Comment on above: Order Comment: No: D o not add to previous draw Performed By: #### 5 0103 #### [facility] [address] [place] [address], [facility] MCHC (RBC) [Mass/Vol] 33.5 g/dL Normal 32.0-35.0 [facility] Comment on above: Order Comment: No: D o not add to previous draw Performed By: #### 5 0103 #### [facility] [address] [place] [place] [address], [facility] MCV (RBC) [Entitic vol] 82.3 fL Normal 82.0-98.0 [facility] Comment on above: Order Comment: No: D o not add to previous draw Performed By: #### 5 0103 #### [facility] [address] [facility] [place] [address], [facility] Monocytes (Bld) [#/Vol] 0.7 10*3/uL Normal 0.1-1.0 [facility] Comment on above: Order Comment: No: D o not add to previous draw Performed By: #### 5 0103 #### [facility] [address] [place] [address], [place] MONOS 11.8 % Normal 5.0-12.0 [facility] Comment on above: Order Comment: No: D o not add to previous draw Performed By: #### 5 0103 #### [facility] [address] [place] [address], [place] Neutrophils/100 WBC (Bld) 49.1 % Normal 40.0-72.0 [facility] Comment on above: Order Comment: No: D o not add to previous draw Performed By: #### 5 0103 #### [facility] [address] [place] [address], [place] Nucleated RBC/100 WBC (Bld) [Ratio] 0 % Normal 0-0 [facility] Comment on above: Order Comment: No: D o not add to previous draw Performed By: #### 5 0103 #### [facility] [address] [place] [address], [place] PLAT CNT 264 10*3/uL Normal 150-400 [facility] Comment on above: Order Comment: No: D o not add to previous draw Performed By: #### 5 0103 #### [facility] [address] [place] [address], [place] RBC (Bld) [#/Vol] 4.06 10*6/uL Normal 3.80-5.00 [facility] Comment on above: Order Comment: No: D o not add to previous draw Performed By: #### 5 0103 #### [facility] [address] [place] [address], [place] WBC (Bld) [#/Vol] 5.58 10*3/uL Normal 4.00-10.60 [facility] Comment on above: Order Comment: No: D o not add to previous draw Performed By: #### 5 0103 #### [facility] [address] [place] [address], [place] Operative Reporton 2 Operative Report MR#: [id number] [facility] Pt. Name: Chelsey Fischer Room #: [id number] Discharge Date: Birthdate: 1970 OPERATIVE REPORT DATE OF SURGERY: 01/11/2022 SURGEON: Violeta Ricci MD CUT AND PRINT MACHINE OPERATOR: Derrell Hunt, PGY 1. ANESTHESIA: General with preoperative regional nerve block, please see separate dictation note from anesthesia for details of the nerve block. 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 POSTOPERATIVE DIAGNOSIS: Right posterior tibial tendon dysfunction with acquired pes planus. PROCEDURE: 1. Right medial displacement calcaneal osteotomy. 2. Flexor digitorum longus transfer to the posterior tibial tendon. FLUIDS: As per anesthesia records. ESTIMATED BLOOD LOSS: Minimal. DRAINS: None. SPECIMENS: None. COMPLICATIONS: None. EXPLANTS: None. IMPLANTS: 1. Perla Fixos 7.0 mm partially-threaded cannulated headless screws x2, size 45 mm. 2. Arthrex BioComposite tenodesis screw, size 4.75 x 15 mm with FiberLoop stitch. OPERATIVE INDICATIONS: The patient is a 51-year-old female patient, who presented to our office with chronic right foot pain and severe flatfoot deformity with dysfunction of the posterior tibial tendon. The patient has failed extensive conservative management in the form of activity modification, shoe modification, custom inserts as well as Cam boot immobilization and bracing. The patient was deemed an appropriate candidate to proceed with the above-mentioned procedure after all benefits and potential risks of the procedure have been explained to the patient. Risks of surgery include, but not limited to infection, neurovascular injury, DVT, retear, nonunion, malunion, persistent pain, worsening of pain, stiffness, residual deformity, the need for further surgery, as well as medical risks associated with anesthesia. DESCRIPTION OF THE PROCEDURE: On the day of surgery, the patient was greeted in the preoperative holding area by me. The patient's right lower extremity and foot were marked with my initials. Informed consent was reviewed and all questions were answered. Prophylactic antibiotics were administrated. Regional nerve block was established by Anesthesia in the preoperative holding area. The patient was then taken back to the operating theater and placed in supine position on the operating table. General anesthesia was induced without complications. A nonsterile tourniquet was applied around the patient's right thigh. The right lower extremity was then prepped and draped in a standard sterile fashion. A time-out was performed confirming correct patient, correct procedure, and correct laterality. Operative personnel were introduced as well. We then began the procedure by localizing our proposed medial displacement calcaneal osteotomy as well as our medial incision for the flexor digitorum longus transfer. We then marked our skin incision using the [place] elevator, where the lateral skin incision over the posterior tuberosity of the calcaneus about 3 cm long was made using skin knife. We then used Bovie to cauterize any encountered bleeding vessels. We then dissected down deep to the periosteum over the posterior tuberosity of the calcaneus where we incised the periosteum with a deep knife and then used a [place] elevator to minimally strip the periosteum at the proposed calcaneal osteotomy site. We then again used a [place] elevator to reconfirm under fluoroscopy our proposed medial calcaneal osteotomy site. After confirmation with fluoroscopy in the lateral view, we then used a microsagittal oscillating saw to create our medial displacement calcaneal osteotomy, which was created posterior to the subtalar joint. We then used a larger soft blade to finish the osteotomy medially and taking care not to plunge to avoid injury to the medial neurovascular structures. After creating the osteotomy, we then used the lamina general counsel and inserted the laminar general counsel in the osteotomized calcaneus to distract the soft tissues medially and relax them to allow clean medial shift. After obtaining enough distraction, we then pushed the posterior tuberosity of the calcaneus medially, obtaining about 8 mm of shift of the calcaneus. We were satisfied with our medial displacement shift of the calcaneus. We then proceeded with placement of 2 guidewires from the posterior aspect of the calcaneus, one perpendicular across the osteotomy site and one diverging and ending towards the subtalar joint. The position of the 2 K-wires was confirmed under fluoroscopy on the lateral views as well as the [place]ano axial views of the calcaneus. We then made a stab incision over the 2 guidewires and used appropriate sized drill to drill over the 2 guidewires for our 7.0 headless cannulated partially-threaded screws. We then measured the proposed screw sized based of the guidewires. We (more content not included)... Normal [facility] FOOT RIGHT 2 [facility] 2 FOOT RIGHT 2 [facility] Department of Radiology [address] [place] [id number] Patient Name: CHELSEY FISCHER : 1970 Sex: F Age: Race: Black Pt. Location: OUTP Patient Status: O Ordered Date: 01/11/2022 7:30:00 AM Completed Date: 01/11/2022 10:02 AM Requesting Provider: VIOLETA RICCI Attending Provider: VIOLETA RICCI Report Copy To: Signs & Symptoms: RIGHT FLAT FOOT RECONSTRUCTION WITH MEDIAL DISPLACEMENT CALCANEAL OSTEOTOMY, FDL TO PTT TRANSFER, POSS LATERAL COLUMN LENGTHENING AND MEDIAL COTTON OSTEOTOMY History: Comments: RIGHT FLAT FOOT RECONSTRUCTION WITH MEDIAL DISPLACEMENT CALCANEAL OSTEOTOMY, FDL TO PTT TRANSFER, POSS LATERAL COLUMN LENGTHENING AND MEDIAL COTTON OSTEOTOMY Exam: FOOT RIGHT 2 [facility] FOOT RIGHT 2 [facility] 01/11/2022 10:02 AM CLINICAL INDICATIONS: RIGHT FLAT FOOT RECONSTRUCTION WITH MEDIAL DISPLACEMENT CALCANEAL OSTEOTOMY, FDL TO PTT TRANSFER, POSS LATERAL COLUMN LENGTHENING AND MEDIAL COTTON OSTEOTOMY TECHNOLOGIST COMMENTS: RIGHT FLAT FOOT RECONSTRUCTION WITH MEDIAL DISPLACEMENT CALCANEAL OSTEOTOMY, FDL TO PTT TRANSFER, POSS LATERAL COLUMN LENGTHENING AND MEDIAL COTTON OSTEOTOMY Dr. Ricci used 1:13 minutes of fluoro time 10 images sent to PACS dose=0.97mGy QUESTION FOR THE RADIOLOGIST: RIGHT FLAT FOOT RECONSTRUCTION WITH MEDIAL DISPLACEMENT CALCANEAL OSTEOTOMY, FDL TO PTT TRANSFER, POSS LATERAL COLUMN LENGTHENING AND MEDIAL COTTON OSTEOTOMY PROTOCOL: AP(PA) and Lateral views were obtained. COMPARISON: 09/13/2021 IMPRESSION: Fluoroscopy time is 73.6 seconds. 16 images are submitted for review. Calcaneal osteotomy is appreciated. Hardware is placed for stabilization. Please refer any questions or concerns related to the procedure to the performing service Electronically signed: Marilin Cole. Transcribed by: [email or web address], User Resident: Electronically Signed by: MARILIN COLE @ 01/11/2022 02:00 PM Normal [facility] Comment on above: Order Comment: RIGHT FLAT FOOT RECONSTRUCTION WITH MEDIAL DISPLACEMENT CALCANEAL OSTEOTOMY, FDL TO PTT TRANSFER, POSS LATERAL COLUMN LENGTHENING AND MEDIAL COTTON OSTEOTOMY POC GLUCOSE LABon 01-11-2022 Glucose [Mass/Vol] 93 mg/dL Normal 70-100 [facility] Comment on above: Performed By: #### [id number] #### [address] FOOT LEFT 3 [facility] 09-13-2021 FOOT LEFT 3 [facility] Department of Radiology [address] [place] [id number] Patient Name: CHELSEY FISCHER : 1970 Sex: F Age: Race: Black Pt. Location: [facility] Patient Status: D Ordered Date: 09/13/2021 9:25:00 AM Completed Date: 09/13/2021 09:26 AM Requesting Provider: JOSE ESCUDERO Attending Provider: JOSE ESCUDERO Report Copy To: Signs & Symptoms: M79.672 Pain in left foot I10 History: [place] Comments: Standng views Exam: FOOT LEFT 3 [facility] FOOT LEFT 3 S 09/13/2021 9:26 AM CLINICAL INDICATIONS: M79.672 Pain in left foot I10 TECHNOLOGIST COMMENTS: pt states having bilateral foot pain. no known trauma. QUESTION FOR THE RADIOLOGIST: Standng views PROTOCOL: AP,Lateral and Oblique views were obtained. COMPARISON: None FINDINGS: Small plantar calcaneal spur is displayed. There are small spurs in the first metatarsal-phalangeal joint. No other focal bony abnormalities depicted. IMPRESSION: Mild degenerative spurring displayed. No other abnormalities. Electronically signed: Yuri Flores. Transcribed by: [email or web address], User Resident: Electronically Signed by: YURI FLORES @ 09/14/2021 01:20 PM Normal [facility] Comment on above: Order Comment: Stand ng views FOOT RIGHT 3 [facility] 2 FOOT RIGHT 3 [facility] Department of Radiology [address] [place] [id number] Patient Name: CHELSEY FISCHER : 1970 Sex: F Age: Race: Black Pt. Location: [facility] Patient Status: D Ordered Date: 09/13/2021 9:25:00 AM Completed Date: 09/13/2021 09:26 AM Requesting Provider: JOSE ESCUDERO Attending Provider: JOSE ESCUDERO Report Copy To: Signs & Symptoms: M79.671 Pain in right foot I10 History: [place] Comments: Standing views Exam: FOOT RIGHT 3 [facility] FOOT RIGHT 3 S 09/13/2021 9:26 AM CLINICAL INDICATIONS: M79.671 Pain in right foot I10 TECHNOLOGIST COMMENTS: pt states having bilateral foot pain. no known trauma. QUESTION FOR THE RADIOLOGIST: Standing views PROTOCOL: AP,Lateral and Oblique views were obtained. COMPARISON: 03/03/2021 FINDINGS: Healed internally fixed first metatarsal osteotomy with no evidence of complications of the screw fixation. A mild degree of remaining hallux valgus is unchanged. No new bony abnormalities. IMPRESSION: Postsurgical changes of the first metatarsal with osteotomy now healed. No new abnormalities. Electronically signed: Yuri Flores. Transcribed by: [email or web address], User Resident: Electronically Signed by: YURI FLORES @ 09/14/2021 09:51 AM Normal [facility] Comment on above: Order Comment: Stand ing views Vital Signs Date Time Vital Sign Value Performing Clinician Facility 06-19-2024 13:28-0500 Body height 167.6 cm Gladis Tesmehran Effective Measure Work Phone: [facility] 06-19-2024 13:28-0500 Body mass index (BMI) [Ratio] 33.41 kg/m2 Gladis Jingmehran Effective Measure Work Phone: [facility] 06-19-2024 13:28-0500 Body temperature 96.91 [degF] Gladis Jingmehran Effective Measure Work Phone: [facility] 06-19-2024 13:28-0500 Body weight 93.89 kg Gladis Jingmehran Effective Measure Work Phone: [facility] 06-19-2024 13:28-0500 Diastolic blood pressure 90 mm[Hg] Gladis Reilly Effective Measure Work Phone: [facility] 06-19-2024 13:28-0500 Heart rate 60 /min Gladis Reilly DO Work Phone: [facility] 06-19-2024 13:28-0500 SaO2% (BldA) [Mass fraction] 99 % Gladis Reilly DO Work Phone: [facility] 06-19-2024 13:28-0500 Systolic blood pressure 142 mm[Hg] Gladis Reilly DO Work Phone: [facility] 12-25-2023 11:48-0400 Body height 167.64 cm DNP Maura Kaple Work Phone: [facility] 12-25-2023 11:48-0400 Body mass index (BMI) [Ratio] 33.4 kg/m2 DNP Maura Kaple Work Phone: [facility] 12-25-2023 11:48-0400 Body weight 93.95 kg DNP Maura Kaple Work Phone: [facility] 12-25-2023 11:48-0400 Diastolic blood pressure 88 mm[Hg] DNP Maura Kaple Work Phone: [facility] 12-25-2023 11:48-0400 Heart rate 72 /min DNP Maura Kaple Work Phone: [facility] 12-25-2023 11:48-0400 Respiratory rate 18 /min DNP Maura Kaple Work Phone: [facility] 12-25-2023 11:48-0400 SaO2% (BldA) [Mass fraction] 99 % DNP Maura Kaple Work Phone: [facility] 12-25-2023 11:48-0400 Systolic blood pressure 138 mm[Hg] DNP Maura Kaple Work Phone: [facility] 12-13-2023 08:37-0400 Body height 167.64 cm DNP Maura Kaple Work Phone: [facility] 12-13-2023 08:37-0400 Body weight 90.71 kg DNP Maura Crook Work Phone: [facility] 11-27-2023 11:16-0400 Body height 167.64 cm DNP Maura Crook Work Phone: [facility] 11-27-2023 11:16-0400 Body mass index (BMI) [Ratio] 33 kg/m2 DNP Maura Crook Work Phone: [facility] 11-27-2023 11:16-0400 Body weight 92.75 kg DNP Maura Crook Work Phone: [facility] 11-27-2023 11:16-0400 Diastolic blood pressure 88 mm[Hg] DNP Maura Crook Work Phone: [facility] 11-27-2023 11:16-0400 Heart rate 84 /min DNP Maura Crook Work Phone: [facility] 11-27-2023 11:16-0400 SaO2% (BldA) [Mass fraction] 97 % DNP Maura Crook Work Phone: [facility] 11-27-2023 11:16-0400 Systolic blood pressure 140 mm[Hg] DNP Maura Crook Work Phone: [facility] 10-30-2023 12:42-0400 Blood Pressure Location [facility] 10-30-2023 12:42-0400 Diastolic blood pressure 82 mm[Hg] [facility] 10-30-2023 12:42-0400 Heart rate 71 /min [facility] 10-30-2023 12:42-0400 SaO2% (BldA) [Mass fraction] 100 % [facility] 10-30-2023 12:42-0400 Systolic blood pressure 124 mm[Hg] [facility] 10-26-2023 10:24040 Body height 167.64 cm [facility] 10-26-2023 10:240400 Body mass index (BMI) [Ratio] 33.3 kg/m2 [facility] 10-26-2023 10:240400 Body weight 93.52 kg [facility] 10-26-2023 10:240400 Diastolic blood pressure 80 mm[Hg] [facility] 10-26-2023 10:240400 Heart rate 73 /min [facility] 10-26-2023 10:240400 SaO2% (BldA) [Mass fraction] 98 % [facility] 10-26-2023 10:24040 Systolic blood pressure 140 mm[Hg] [facility] Encounters Encounter Date Encounter Type Care Provider Facility Start: 07-10-2024 End: 07-10-2024 ambulatory [facility] Work Phone: Start: 07-10-2024 End: 07-10-2024 Patient encounter procedure [facility] Work Phone: Start: 06-19-2024 End: 06-19-2024 ambulatory GLADIS REILLY Not Available Start: 06-19-2024 End: 06-19-2024 Patient encounter procedure Gladis Reilly DO Work Phone: [facility] Comment on above: Physical examination of employee Start: 12-25-2023 End: 12-25-2023 ambulatory DNP Maura Crook Work Phone: [facility] Work Phone: Start: 12-25-2023 End: 12-25-2023 Patient encounter procedure DNP Maura Armaan Work Phone: [facility] Work Phone: Start: 12-13-2023 End: 12-13-2023 ambulatory DNP Maura Armaan Work Phone: [facility] Work Phone: Start: 12-13-2023 End: 12-13-2023 Departed Referred DNP Maura Crook Work Phone: [facility] Work Phone: Start: 12-01-2023 End: 12-01-2023 ambulatory STEVE A VISCI Not Available Start: 11-27-2023 Encounter for genera l adult medical examination without abnormal findings Maura Crook [facility] Start: 11-27-2023 End: 11-27-2023 ambulatory DNP Maura Crook Work Phone: [facility] Work Phone: Start: 11-27-2023 End: 11-27-2023 Patient encounter procedure DNP Maura Crook Work Phone: [facility] Work Phone: Start: 11-02-2023 End: 11-02-2023 Patient encounter procedure DNP Maura Crook Work Phone: [facility] Work Phone: Start: 11-02-2023 End: 11-02-2023 ambulatory DNP Maura Crook Work Phone: [facility] Work Phone: Start: 10-31-2023 End: 10-31-2023 ambulatory DNP Maura Crook Work Phone: [facility] Work Phone: Start: 10-31-2023 End: 10-31-2023 Patient encounter procedure DNP Maura Crook Work Phone: [facility] Work Phone: Start: 10-31-2023 End: 10-31-2023 Patient encounter procedure DNP Maura Crook Work Phone: [facility] Start: 10-31-2023 End: 10-31-2023 ambulatory DNP Maura Crook Work Phone: [facility] Work Phone: Start: 10-30-2023 End: 10-30-2023 ambulatory Antony Chopra Facility:[facility] Start: 10-30-2023 End: 10-30-2023 Patient encounter procedure Antony Chopra [facility] Start: 10-26-2023 End: 10-26-2023 ambulatory [facility] Work Phone: Start: 10-26-2023 End: 10-26-2023 Encounter for general adult medical examination without abnormal findings [facility] Start: 10-26-2023 End: 10-26-2023 Patient encounter procedure [facility] Work Phone: Start: 10-23-2023 Physical examination [facility] Start: 08-09-2023 End: 08-09-2023 ambulatory PARTH FELDMAN Not Available Start: 07-06-2023 End: 07-06-2023 ambulatory PARTH FELDMAN Not Available Start: 07-06-2023 Bamboo flowsheet Parth Russell tz DPM Work Phone: [facility] Start: 07-06-2023 Bamboo flowsheet Parth Russell tz DPM Work Phone: [facility] Start: 01-11-2022 End: 01-12-2022 [facility] Procedures Date Procedure Procedure Detail Performing Clinician Start: 11-02-2023 Screening mammograph y of bilateral breasts DNP Maura Armaan Work Phone: Start: 10-31-2023 Plain X-ray of right hand DNP Maura Crook Work Phone: Start: 06-28-2021 Microscopic observat ion [Identifier] in Cervix by Cyto stain Gladis Reilly DO Work Phone: Ankle region structu re (body structure) Antony Lucilaking Plan of Treatment Date Care Activity Detail Author Start: 06-28-2024 Screening for malign ant neoplasm of cervix [facility] Start: 01-21-2024 Influenza vaccination Influenz a Vaccine (#1) [facility] Start: 01-19-2024 [facility] Start: 10-31-2023 Plain X-ray of right hand XR hand RT min 3V* [facility] Start: 10-31-2023 XR Hand - right GE 3 Views [facility] Start: 10-26-2023 Patient referral [facility] Work Phone: Start: 2011 Screening for malign ant neoplasm of breast Mammogram [facility] Start: 2001 Screening for malign ant neoplasm of cervix HPV/Cotest [facility] Start: 1970 Screening for malign ant neoplasm of colon [facility] Comprehensive metabo lic 2000 panel - Serum or Plasma [facility] MG Breast - bilatera l Screening [facility] Patient referral [facility] Work Phone: [facility] Payers Date Payer Category Payer Self-pay [id number] 2023 Unknown BCBS BCBS [id number] [id number] 2023-Present [phone] [address] [place] [address] [id number] 2023 Unknown [id number] 2018 Unknown [id number] 1970 Unknown [id number] 1970 Unknown [id number] 1970 Unknown [id number] 1970 Unknown [id number] 1970 Unknown [id number] 1970 Unknown [id number] Unknown [id number] Unknown [id number] Unknown [id number] Unknown [id number] Social History Date Type Detail Facility Tobacco smoking stat [facility] Tobacco smoking consumption unknown [facility] Start: 1970 Sex Assigned At Not on file [facility] Start: 12-01-2023 End: 06-19-2024 Gender identity Not on file [facility] Start: 03-03-2021 Tobacco smoking stat [facility] Current some day smoker [facility] Start: 1970 Sex Assigned At Female F [facility] Start: 07-06-2023 End: 10-30-2023 Tobacco smoking status Never smoked tobacco (finding) [facility] Tobacco smoking status Never [facility] Start: 12-13-2023 End: 12-13-2023 Tobacco smoking status NHIS Ex-smoker (finding) [facility] Start: 07-06-2023 Tobacco use and exposure Smokeless tobacco non-user [facility] Start: 06-19-2024 Alcoholic beverage intake Current drinker of alcohol (finding) [facility] Start: 12-01-2023 End: 06-19-2024 History of Social function [facility] How often to you hav e a drink containing alcohol? Monthly or less [facility] How many standard drinks containing alcohol do you have on a typical day? 1 or 2 [facility] How often do you hav e 6 or more drinks on 1 occasion? Less than monthly [facility] Start: 08-08-2023 Alcohol Comment caffeine: 1-2 cups per day coffee [facility] Start: 07-10-2024 Sex Female (finding) [facility] Functional Status Date Assessment Result Facility 10-30-2023 Functional Status N/A [facility] Clinical Notes 06-19-2024 Maura Sabillon MA - 06/19/2024 1:10 PM EST Note Date & Type Note Facility 06-19-2024 History of Present illness Narrative Pt presents today for a pre-employment drug screen, Physical Exam, Lift Assessment, and Audiogram for Mell. Pt verified by photo ID. Examination General Examination: General Examination: in no acute distress, well developed, well nourished. HEAD: normocephalic atraumatic. Eyes: extraocular movement intact (EOMI) fundus normal pupils equal, round, reactive to light. EARS: auditory canal clear tympanic membrane intact, clear. NOSE: no lesions nares patent. ORAL CAVITY: no lesions mucosa moist. Throat: clear. NECK/THYROID: neck supple, full range of motion. LYMPH NODES: no cervical adenopathy. SKIN: No rashes HEART: no murmurs, regular rate and rhythm, S1, S2 normal. LUNGS: clear to auscultation bilaterally. ABDOMEN: soft, non tender, non distended no hepatosplenomegaly no masses palpable. MUSCULOSKELETAL: normal. EXTREMITIES: no clubbing, cyanosis, or edema. PERIPHERAL PULSES: normal. NEUROLOGIC: nonfocal cranial nerves 2-12 grossly intact. PSYCH: alert, oriented cognitive function intact cooperative with exam. HPI, ROS, and PE reviewed and amended by Dr. Gladis Reilly as necessary. Written by LIO Rodas 1. Physical examination of employee Dx reviewed Forms completed, pt cleared for work. documented in this encounter [facility] Evaluation + Plan note No data available for this section [facility] Evaluation note Diagnosis Onset Date Essential hypertension acute GERD (gastroesophageal reflux disease) acute Well adult exam acute [facility] Work Phone: Evaluation note* Diagnosis Onset Date Resolution Status Essential hypertension acute GERD (gastroesophageal reflux disease) acute Well adult exam acute Trigger finger of right thumb acute [facility] Work Phone: Evaluation note* Diagnosis Onset Date Resolution Status Essential hypertension acute GERD (gastroesophageal reflux disease) acute Well adult exam acute Trigger finger of right thumb acute Essential hypertension acute GERD (gastroesophageal reflux disease) acute [facility] Work Phone: Evaluation note* Diagnosis Onset Date Resolution Status Essential hypertension acute GERD (gastroesophageal reflux disease) acute Well adult exam acute Trigger finger of right thumb acute Essential hypertension acute GERD (gastroesophageal reflux disease) acute Essential hypertension acute GERD (gastroesophageal reflux disease) acute [facility] Work Phone: Evaluation note* Diagnosis Onset Date Resolution Status Essential hypertension acute GERD (gastroesophageal reflux disease) acute Essential hypertension acute GERD (gastroesophageal reflux disease) acute [facility] Work Phone: Evaluation note* Diagnosis Physical examination of employee [facility] this encounter [facility] Diagnosis Onset Date Resolution Status Admit Date Trigger finger of right thumb acute July 10, 2024 10:25am [facility] Work Phone: Hospital Discharge instructionsAmbulatory Orders* Referral to Gastroenterology Location: None Selected [facility] Work Phone: Hospital Discharge instructions No data available for this section [facility] Progress note No data available for this section [facility] Summary Purpose Family History Relationship Condition Age at Onset Recorded Date/T charisma father Hypertension Unknown mother Hypertension Unknown Osteoporosis Unknown Advance Directives Advance Directive Response Recorded Date/ Time Advance Directives No February 24, 2017 2:32pm Advance Directive Response Recorded Date/ Time Advance Directives No February 24, 2017 1:32pm Chief Complaint and Reason for Visit Chief Complaint AWV Reason for Visit Essential hypertensi on GERD (gastroesophageal reflux disease) Well adult exam Chief Complaint AWV M79.644 - Pain in right finger(s) [facility] TH[facility]B WARM [place]OLLEN NX Reason for Visit Essential hypertensi on GERD (gastroesophageal reflux disease) Well adult exam Trigger finger of right thumb Chief Complaint AWV M79.644 - Pain in right finger(s) [facility] THUMB WARM [place] NX Z12.31 Reason for Visit Essential hypertensi on GERD (gastroesophageal reflux disease) Well adult exam Trigger finger of right thumb Chief Complaint AWV M79.644 - Pain in right finger(s) [facility] THUMB WARM [place] NX Z12.31 4 week follow up Reason for Visit Essential hypertensi on GERD (gastroesophageal reflux disease) Well adult exam Trigger finger of right thumb Essential hypertension GERD (gastroesophageal reflux disease) Chief Complaint AWV M79.644 - Pain in right finger(s) [facility] THUMB WARM [place] NX Z12.31 4 week follow up z00.00 i10 Reason for Visit Essential hypertensi on GERD (gastroesophageal reflux disease) Well adult exam Trigger finger of right thumb Essential hypertension GERD (gastroesophageal reflux disease) Chief Complaint AWV M79.644 - Pain in right finger(s) [facility] THUMB WARM [place] NX Z12.31 4 week follow up z00.00 i10 4 week follow up Reason for Visit Essential hypertensi on GERD (gastroesophageal reflux disease) Well adult exam Trigger finger of right thumb Essential hypertension GERD (gastroesophageal reflux disease) Essential hypertension GERD (gastroesophageal reflux disease) Chief Complaint 4 week follow up z00.00 i10 Screening 4 week follow up Reason for Visit Essential hypertensi on GERD (gastroesophageal reflux disease) Essential hypertension GERD (gastroesophageal reflux disease) Chief Complaint Admit Date OP SP RT TRIGGER THUMB July 10 10:25am Reason for Visit Admit Date Trigger finger of right thumb June 222024 10:25am Additional Source Comments INFORMATION SOURCE (unrecogn ized section and content) DATE CREATED AUTHOR 01/26/2022 [facility] DATE CREATED AUTHOR AUTHOR'S ORGANIZ ATION 10/31/2023 [facility] DATE CREATED AUTHOR AUTHOR'S ORGANIZ ATION 02/15/2024 [facility] DATE CREATED AUTHOR AUTHOR'S ORGANIZ ATION 06/21/2024 [facility] DATE CREATED AUTHOR AUTHOR'S ORGANIZ ATION 06/21/2024 [facility] Care Teams (unrecognized sec tion and content) 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 Start Date End Date Unallocated, Lupe Provider [address] [place] [address] PCP - General Family Medicine 07/06/23 Team Status: Active Member Role Status Dates Maura Crook DNP Primary Care Provider Active Team Status: Inactive Member Role Status Dates Maura Crook DNP Primary Care Provid er, Attending Provider Active Start: October 26, 2023 End: October 26, 2023 Team Status: Active Member Role Status Dates Maura Crook DNP Primary Care Provider Active Start: October 31, 2023 Rocío Suh MD Attending Provider Active Start: October 31, 2023 Team Status: Inactive Member Role Status Dates Maura Crook DNP Primary Care Provider Active Start: October 31, 2023 End: October 31, 2023 Rocío Suh MD Attending Provider Active Start: October 31, 2023 End: October 31, 2023 Team Status: Inactive Member Role Status Dates Maura Crook DNP Primary Care Provid er, Attending Provider Active Start: November 02, 2023 End: November 02, 2023 Team Status: Inactive Member Role Status Dates Maura Crook DNP Primary Care Provid er, Attending Provider Active Start: November 27, 2023 End: November 27, 2023 Team Status: Inactive Member Role Status Dates Maura Crook DNP Primary Care Provid er, Attending Provider Active Start: December 25, 2023 End: December 25, 2023 Team Status: Active Member Role Status Dates Maria Teresa Rey DO Primary Care Provider Active Team Status: Inactive Member Role Status Dates Maura Crook DNP Primary Care Provider Active Start: December 13, 2023 End: December 13, 2023 Jd Dejesus MD Attending Provider Active Start: December 13, 2023 End: December 13, 2023 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 Start Date End Date Unallocated, Lupe Rubio MD [address] [place] [address] PCP - General Family Medicine 07/06/23 Team Status: Inactive Member Role Status Dates Maria Teresa DeWilde , DO Primary Care Provider Active Start: July 10, 2024 End: July 10, 2024 Rocío Suh MD Attending Provider Active Start: July 10, 2024 End: July 10, 2024 Goals (unrecognized section and content) Goals may be documented in a n alternate section No data available for this sectionGoals may be documented in an alternate sectionGoals may be documented in an alternate sectionGoals may be documented in an alternate sectionGoals may be documented in an alternate sectionGoals may be documented in an alternate sectionGoals may be documented in an alternate sectionGoals may be documented in an alternate sectionGoals may be documented in an alternate section Reason for Visit (unrecogniz ed section and content) Reason Comments Encounter for Drug Screening FOR RECORDS PERTAINING TO PATIENTS WHO ARE OR HAVE BEEN ENROLLED IN A CHEMICAL DEPENDENCY/SUBSTANCEABUSE PROGRAM, SOME INFORMATION MAY BE OMITTED. This clinical summary was aggregated from multiple sources. Caution should be exercised in using it in the provision of clinical care. This summary normalizes information from multiple sources, and as a consequence, information in this document may materially change the coding, format and clinical context of patient data. In addition, data may be omitted in some cases. CLINICAL DECISIONS SHOULD BE BASED ON THE PRIMARY CLINICAL RECORDS. [facility]. provides no warranty or guarantee of the accuracy or completeness of information in this document.
== END 2024-07-17 13:12 | disposition home or self-care (01) ==
LOC: RAD 13:11
PROVIDERS: PCP Nurse Practitioner Family; Visit Provider Podiatrist Foot & Ankle Surgery
DX: M79.671 Pain in right foot (principal); Z98.890 Other specified postprocedural states
CPT/HCPCS: 73630